=== PATIENT | male | born 1995 | race Caucasian/White ===

== ENCOUNTER 2018-08-02 16:32 | Emergency (ER) | payer OTHER ==
[2018-08-02 16:39] VITALS: BP 161/75
--- NOTE | 2018-08-02 17:04 | EDPHY ---
H & P Stated Complaint: anxiety Time Seen by Provider: 08/02/18 16:59 HPI/ROS: HPI: This is a 22-year-old male who presents with Chief Complaint: Cardiac awareness and anxiety Location: Heart Quality: Cardiac awareness, anxiety Duration: 1-2 weeks Signs and Symptoms: no shortness of breath at rest, no shortness of breath on exertion, no cough, no chest pain, no palpitations, no lower extremity edema, no wheezing, no orthopnea, no paroxysmal nocturnal dyspnea, no fever, no injury/ trauma, no hemoptysis, no carpal pedal spasms Timing: Acute, intermittent episodes Severity: [id number] Context: Patient is generally healthy, student at [employer], presents with cardiac awareness while lying in bed and skiing over the last 1-2 weeks. He denies actual chest pain, palpitations, racing heart. He does drink coffee daily and smokes vaporizer tobacco but denies any marijuana or other drug use including methamphetamine. He denies any family history of cardiac problems. He reports that he is able to skiing exercise without any difficulty. He reports some anxiety related to school related activities but nothing more than baseline. Denies suicidal ideation, homicidal ideation, paranoia. Reports awareness is not positional. It can occur while lying down or exerting himself. Currently he denies any symptoms. No recent long distance travel. Modifying Factors: None Comment: ROS: A comprehensive 10 system review of systems is otherwise negative aside from elements mentioned in the history of present illness. MEDICAL/SURGICAL/SOCIAL HISTORY: Medical history: Generally healthy. Does not take any regular medications. Surgical history: Denies Social history: Student at [employer]. Originally from [place], [place]. Uses a vapor tobacco products but denies marijuana and other drug use. CONSTITUTIONAL: Extremely polite and cooperative young adult white male, awake and alert, no obvious distress HEENT: Atraumatic and normocephalic, PERRL, EOMI. Nares patent; no rhinorrhea; no nasal mucosal edema. Tympanic membranes clear. Oropharynx clear, no exudate and moist pink mucosa. Airway patent. No lymphadenopathy. No meningismus. Cardiovascular: Normal S1/S2, regular rate, regular rhythm, without murmur rub or gallop. PULMONARY/CHEST: Symmetrical and nontender. Clear to auscultation bilaterally. Good air movement. No accessory muscle usage. ABDOMEN: Soft, nondistended, nontender, no rebound, no guarding, no peritoneal signs, no masses or organomegaly. No CVAT. EXTREMITIES: 2/2 pulses, strength 5/5, no deformities, no clubbing, no cyanosis or edema. Negative Homans sign. No palpable cords. No varicose veins. NEUROLOGICAL: no focal neuro deficits. GCS 15. SKIN: Warm and dry, no erythema. no rash. Good capillary refill. Source: Patient Exam Limitations: No limitations - Personal History Current Tetanus/Diphtheria Vaccine: Yes Current Tetanus Diphtheria and Acellular Pertussis (TDAP): Yes - Medical/Surgical History Hx Asthma: No Hx Chronic Respiratory Disease: No Hx Diabetes: No Hx Cardiac Disease: No Hx Renal Disease: No Hx Cirrhosis: No Hx Alcoholism: No Hx HIV/AIDS: No Hx Splenectomy or Spleen Trauma: No Other PMH: denies - Social History Smoking Status: Current every day smoker Constitutional: Initial Vital Signs Temperature (C) 36.4 C 08/02/18 16:37 Heart Rate 71 08/02/18 16:37 Respiratory Rate 16 08/02/18 16:37 Blood Pressure 161/75 H 08/02/18 16:37 O2 Sat (%) 97 08/02/18 16:37 O2 Delivery Mode Room Air Allergies/Adverse Reactions: No Known Allergies Allergy (Unverified 08/02/18 16:37) Home Medications: Medication Instructions Recorded NK [No Known Home Meds] 08/02/18 Medical Decision Making ED Course/Re-evaluation: Vital signs reviewed and stable upon arrival. EKG performed my read and with attending shows normal sinus rhythm with no acute ischemic changes, no arrhythmias. Wells criteria is low for pulmonary embolism Suspect this is related to anxiety Referral to [facility] given This patient was seen under the supervision of my secondary supervising physician. I evaluated care for this patient independently. Discussed this patient with Dr. Serrano who did not see the patient. Differential Diagnosis: Differential diagnosis includes but is not limited to SVT, [id number] , pulmonary embolism, bronchitis, pericarditis, anxiety. Departure - Departure Disposition: Home, Routine, Self-Care Clinical Impression: Awareness of heart beat Condition: Good Instructions: Heart Palpitations (ED), Anxiety (ED) Additional Instructions: Your EKG today shows no cardiac abnormalities. Please refrain from drinking caffeine or smoking tobacco/marijuana. [facility] if symptoms persist. Referrals: [facility] ,. [Clinic] - As per Instructions [facility]. [Clinic] - As per Instructions
--- NOTE | 2018-08-03 04:06 | CPEKG ---
Test Reason : OPEN Blood Pressure : / mmHG Vent. Rate : 066 BPM Atrial Rate : 067 BPM P-R Int : 165 ms QRS Dur : 081 ms QT Int : 403 ms P-R-T Axes : 064 080 045 degrees QTc Int : 423 ms Sinus rhythm Confirmed by Tiara Padilla ([id number]) on 08/03/2018 4:05:58 AM Referred By: Confirmed By:Tiara Padilla
== END 2018-08-02 17:34 | disposition home or self-care (01) ==
DX: R00.2 Palpitations (principal); F17.200 Nicotine dependence, unspecified, uncomplicated